=== PATIENT | female | born 1980 | race African-American/Black ===

== ENCOUNTER → 2024-12-12 | Outpatient (CLI) | payer OTHER ==
--- NOTE | 2024-12-12 13:54 | HMCIMG ---
EXAM: CR Right Shoulder, 2 View. CLINICAL HISTORY: PAIN COMPARISON: None provided. FINDINGS: BONES: No acute fracture or aggressive appearing osseous lesion. JOINTS: No dislocation. The joint spaces are normal. SOFT TISSUES: The soft tissues are unremarkable. IMPRESSION: No acute fracture or dislocation. /[place]
== END | disposition home or self-care (01) ==
LOC: RAH 10:03
PROVIDERS: ATTEND Physical Medicine & Rehabilitation
DX: M25.812 Other specified joint disorders, left shoulder (principal); M25.512 Pain in left shoulder
CPT/HCPCS: 73030